=== PATIENT | male | born 1970 | race Caucasian/White ===

== ENCOUNTER 2024-06-02 12:28 | Emergency (ER) | payer OTHER ==
[~2024-06-02] VITALS: Ht 177.8 cm; Wt 76.7 kg
[2024-06-02 12:36] VITALS: O2SAT 99
[2024-06-02] MEDS ORDERED: NEOMY/BACITRA/POLYMYXIN B OINT UD PACKET TP ONE (12:57)
[2024-06-02] MEDS ORDERED: AMOXICILLIN-CLAVUL 875-125MG TABLET ONE (13:06)
[2024-06-02] MEDS: NEOMY/BACITRA/POLYMYXIN B OINT UD PACKET TP ONE (13:08)
[2024-06-02] MEDS ORDERED: AMOX-430 PO (13:09)
[2024-06-02] MEDS: AMOXICILLIN-CLAVUL 875-125MG TABLET PO ONE (13:09)
== END 2024-06-02 13:13 | disposition home or self-care (01) ==
LOC: ER 12:30
DX: S00.01XA Abrasion of scalp, initial encounter (principal); Z85.820 Personal history of malignant melanoma of skin; W54.0XXA Bitten by dog, initial encounter; Y93.89 Activity, other specified; Y92.89 Other specified places as the place of occurrence of the external cause; Y99.8 Other external cause status
CPT/HCPCS: A4606; A4663